=== PATIENT | male | born 1990 | race Caucasian/White ===

== ENCOUNTER 2023-10-18 14:24 | Emergency (ER) | payer MEDICAID ==
[~2023-10-18] VITALS: Ht 172.7 cm; Wt 86.0 kg
[~2023-10-18 14:24] MED LIST: IBUP-1574 PO; IBUP-1984 PO; LANS15CA15 PO; NAPR-56 PO; NO HOME MEDS; PRED20TA PO; PSEU-225 PO
[2023-10-18] MEDS ORDERED: ketorolac trometh. 30mg/ml inj. IM ONE (16:10)
[2023-10-18] MEDS ORDERED: CEPH-585 PO (16:19)
[2023-10-18] MEDS: ketorolac tromethamine 15mg/ml inj. IM ONE (16:50)
[2023-10-18] MEDS: TETanus/Pertussis (Acell)/Diphther VAC/PF (Tdap-Adult) 0.5ml syringe IMVAC ONE (16:51)
[2023-10-18 16:56] VITALS: BP 123/73; PULSE 70; RESP 14; TEMP 98.6; O2SAT 97
== END 2023-10-18 17:00 | disposition home or self-care (01) ==
LOC: ER 14:24
DX: S80.812A Abrasion, left lower leg, initial encounter (principal); G43.909 Migraine, unspecified, not intractable, without status migrainosus; J45.909 Unspecified asthma, uncomplicated; G89.29 Other chronic pain; M54.9 Dorsalgia, unspecified; F12.90 Cannabis use, unspecified, uncomplicated; Z90.49 Acquired absence of other specified parts of digestive tract; Z56.0 Unemployment, unspecified; Z59.00 Homelessness unspecified; Z79.1 Long term (current) use of non-steroidal anti-inflammatories (NSAID); Z79.52 Long term (current) use of systemic steroids; Z88.0 Allergy status to penicillin; V18.9XXA Unspecified pedal cyclist injured in noncollision transport accident in traffic accident, initial encounter; Y93.89 Activity, other specified; Y92.89 Other specified places as the place of occurrence of the external cause; Y99.8 Other external cause status
CPT/HCPCS: 73590; 90471; 90715; 96372; 99284; J1885

== ENCOUNTER 2023-11-02 20:57 | Emergency (ER) | payer MEDICAID ==
[~2023-11-02] VITALS: Ht 170.2 cm; Wt 86.4 kg
[2023-11-02 21:03] VITALS: TEMP 98.9
[2023-11-02 22:45] VITALS: BP 144/82; PULSE 85; RESP 14; O2SAT 99
[2023-11-02] MEDS: sulfamethoxazole/trimethoprim DS (800/160mg) tablet PO ONE (22:53)
[2023-11-02] MEDS ORDERED: SULF1TAB49 PO (22:59)
== END 2023-11-02 23:13 | disposition home or self-care (01) ==
LOC: ER 20:58
DX: S81.812D Laceration without foreign body, left lower leg, subsequent encounter (principal); G43.909 Migraine, unspecified, not intractable, without status migrainosus; G89.29 Other chronic pain; M54.9 Dorsalgia, unspecified; F12.90 Cannabis use, unspecified, uncomplicated; Z90.49 Acquired absence of other specified parts of digestive tract; Z59.00 Homelessness unspecified; Z56.0 Unemployment, unspecified; Z88.0 Allergy status to penicillin; Z79.1 Long term (current) use of non-steroidal anti-inflammatories (NSAID); Z79.52 Long term (current) use of systemic steroids; Z79.899 Other long term (current) drug therapy; X58.XXXD Exposure to other specified factors, subsequent encounter
CPT/HCPCS: 99283; J7030

== ENCOUNTER 2025-01-29 17:30 | Emergency (ER) | payer MEDICAID ==
[~2025-01-29] VITALS: Ht 172.7 cm; Wt 82.0 kg
[2025-01-29 17:38] VITALS: BP 130/89; PULSE 100; RESP 18; TEMP 98; O2SAT 96
--- NOTE | 2025-01-29 17:54 | ELECTROCARDIOGRAPH REPORT ---
[facility] Test Date: 2025-01-29 Test Time: 17:52:23 Pat Name: EVELYN GUAN Department: EMERGENCY ROOM Room: Gender: M Package Dyer: EVELIN : 1990 Requested By: ERICKA BARRAGAN Order Number: [id number] Reading MD: Dr. Michael Mann Measurements Intervals [place] Rate: 81 P: 63 OR: 179 QRS: 40 QRSD: 90 T: 40 QT: 351 QTc: 408 Interpretive Statements Sinus rhythm ST elev, probable normal early repol pattern Electronically Signed On 01-29-2025 20:30:[address] Michael Mann Please click the below link to view image of tracing.
--- NOTE | 2025-01-29 17:57 | Physician Documentation ---
History of Present Illness General Chief Complaint: See Chief Complaint Stated Complaint: THYROID ISSUE Time Seen by MD: 18:36 Primary Medical Doctor: NONE History of Present Illness Initial Comments This is a 35-year-old male with a history of Antonia's thyroiditis who presents with one-week of feeling of brain fog and three days of generalized body pain, patient is concerned that he may be having a thyroid crisis. Medication Reconciliation Allergies: Coded Allergies: Penicillins (Verified Allergy, Unknown, 01/29/25) Scheduled Ibuprofen (Ibuprofen), 400 MG PO QID Ibuprofen* (Motrin*), 800 MG PO BID Lansoprazole (Prevacid 24HR), 15 MG PO DAILY Naproxen (Naproxen), 500 MG PO Q12H Prednisone* (Prednisone*), 3 TAB PO DAILY Pseudoephedrine Hcl (Sudafed), 30 MG PO Q6H Miscellaneous Medications Home Med List (No Home Medications), (Reported) Past Medical History Past Medical History: Headache, Migraine, Asthma, Chronic Back Pain Past Surgical History: appendectomy Smoking: Cigarettes Alcohol Use: None Drug Use: marijuana Lives In: Homeless Occupation: unemployed Review of Systems All Other Systems at this time: Reviewed and Negative ROS As stated above in the HPI, otherwise all systems are reviewed and negative. Physical Exam Physical Exam Vital Signs: Temperature: 98.0, Heart Rate: 100, Respiratory Rate: 18, BP: 130/89, Pulse Oximetry: 96, Weight: 82.000 Oxygen Flow Rate: 0 Physical Exam General: Alert, no apparent distress. HEENT: moist mucous membranes. Neck: Full range of motion. No obvious goiter Respiratory: No respiratory distress speaking in full sentences Chest: No accessory muscle use. Cardiovascular: Appears well perfused Neurologic: Oriented x4. Psychiatric: Normal mood and affect. Skin: Normal color, warm and dry. No edema, no ecchymosis. Progress Results/Orders Results/Orders Vital Signs 01/29/25 17:38 Temp 98.0 Pulse 100 Resp 18 B/P (MAP) 130/89 Pulse Ox 96 O2 Flow Rate 0 Laboratory Tests Test 01/29/25 17:58 White Blood Count 9.2 Red Blood Count 5.05 Hemoglobin 15.0 Hematocrit 42.5 Mean Corpuscular Volume 84.2 Mean Corpuscular Hemoglobin 29.7 Mean Corpuscular Hemoglobin Concent 35.3 Red Cell Distribution Width 14.2 Platelet Count 432 Mean Platelet Volume 8.8 Neutrophils (%) (Auto) 73.5 Lymphocytes (%) (Auto) 18.6 L Monocytes (%) (Auto) 6.3 Eosinophils (%) (Auto) 1.0 Basophils (%) (Auto) 0.6 Neutrophils # (Auto) 6.7 Lymphocytes # (Auto) 1.7 Monocytes # (Auto) 0.6 Eosinophils # (Auto) 0.1 Basophils # (Auto) 0.1 CBC Comment Sodium Level 143 Potassium Level 3.7 Chloride Level 107 Carbon Dioxide Level 27.0 Anion Gap 9 Blood Urea Nitrogen 19 H Creatinine 1.13 H Estimated GFR/1.73 m2 73 BUN/Creatinine Ratio 16.8 Glucose Level 112 H Calcium Level 9.4 Total Bilirubin 0.5 Aspartate Amino Transf (AST/SGOT) 17 Alanine Aminotransferase (ALT/SGPT) 19 Alkaline Phosphatase 88 Total Protein 8.0 Albumin 4.5 Globulin 3.5 Albumin/Globulin Ratio 1.3 Thyroid Stimulating Hormone (TSH) 0.95 Chemistry Comments Medical Decision Making Findings Due to patient stating that he felt like there was a thyroid storm potential with Antonia's. TSH was ordered and unremarkable 0.9. Patient's other labs are reassuring as well as vital signs. Patient will be discharged to follow up with primary care Departure Time of Disposition: 18:37 Disposition: 01 HOME / SELF CARE / HOMELESS Impression: Primary Impression: H/O Antonia thyroiditis Condition: Stable Additional Instructions: Your TSH or thyroid-stimulating hormone lab was within normal limits and your other labs were unremarkable for any significant findings. Follow up with primary care to further examine the cause of your symptoms at this time. Referrals: NO PRIMARY CARE PROVIDER (PCP) Education Educated: Patient Educated regarding: diagnosis, treatment, need for follow up Signature Scribe Signature: No scribe Attestation: The note accurately reflects work and decisions made by me.Esthela Parker - FELICE 01/29/25 18:39 ERICKA BARRAGAN Jan 29, 2025 17:57 ESTHELA PARKER NP Jan 29, 2025 18:39
[2025-01-29 18:21] LABS: CREATININE 1.13 MG/DL (0.60-1.10); TOTAL CARBON DIOXIDE 27.0 MMOL/L (24-32); eCRCL 87 ML/MIN; eGFR 73 ML/MIN
[2025-01-29 18:25] LABS: MEAN PLATELET VOLUME 8.8 FL (7.4-10.4); RED CELL DISTRIBUTION WIDTH 14.2 % (11.5-14.5)
== END 2025-01-29 18:54 | disposition home or self-care (01) ==
LOC: ER 17:30
DX: E06.3 Autoimmune thyroiditis (principal); J45.909 Unspecified asthma, uncomplicated; G43.909 Migraine, unspecified, not intractable, without status migrainosus; F12.90 Cannabis use, unspecified, uncomplicated; F17.210 Nicotine dependence, cigarettes, uncomplicated; Z88.0 Allergy status to penicillin; Z88.8 Allergy status to other drugs, medicaments and biological substances; Z90.49 Acquired absence of other specified parts of digestive tract; Z79.899 Other long term (current) drug therapy
CPT/HCPCS: 36415; 80053; 84443; 85025; 93005; 99284